=== PATIENT | male | born 1975 | race Caucasian/White ===

== ENCOUNTER 2020-03-12 22:01 | Emergency (ER) | payer OTHER ==
[~2020-03-12] VITALS: Ht 170.2 cm; Wt 97.5 kg
[2020-03-12 22:13] VITALS: BP 152/90
[2020-03-12 22:24] VITALS: BP_SYST 152
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
[2020-03-12 23:10] LABS: BASOPHIL # 0.1 10^3/uL (0.0-0.1); BASOPHIL % 0.4 % (0.0-0.2); EOSINOPHIL % 0.3 % (0.0-5.0); LYMPHOCYTES # 3.81 10^3/uL1 (1.0-4.8); LYMPHOCYTES % 29.8 % (24.0-44.0); MEAN CORP HGB 29.8 pg (26-34); MONOCYTES # 0.9 10^3/uL (0.3-0.8); MONOCYTES % 7.3 % (5.0-12.0); NEUTROPHIL # 7.9 10^3/uL (1.8-7.7); NEUTROPHILS % 61.7 % (41.0-85.0); PLATELET COUNT 298 10^3/uL (150-400); RED CELL DISTRIBUTION WIDTH 12.4 % (11.5-14.5)
[2020-03-12 23:19] LABS: CALCIUM 8.2 mg/dL (8.4-10.5); CARBON DIOXIDE 27.8 mmol/L (20.0-32)
--- NOTE | 2020-03-13 00:11 | DIREP ---
PROCEDURE:XRAY ANKLE MIN 3VWS-RT COMPARISON:None. INDICATIONS:pain FINDINGS: BONES:No acute fracture. JOINTS:The ankle mortise is congruent. SOFT TISSUES:Mild soft tissue swelling about the ankle. OTHER:No additional findings. CONCLUSION: 1. No acute osseous abnormality. 2. Mild soft tissue swelling about the ankle. Dictated by: Joe Lao M.D. On 03/13/2020 at 00:09 AM
--- NOTE | 2020-03-13 00:13 | DIREP ---
PROCEDURE:CT HEAD OR BRAIN W/O CONTRAST COMPARISON:None. INDICATIONS:pain TECHNIQUE:CT images were created without intravenous contrast. FINDINGS: VENTRICLES: Unremarkable ventricular size and morphology for the patient's age. CEREBRUM: No apparent mass or mass effect. No acute intracranial hemorrhage or abnormal extra-axial fluid collections. No CT evidence to suggest acute large vascular territorial ischemia. CEREBELLUM: Unremarkable for the patient's age. BRAINSTEM: Normal. SKULL: Normal. SINUSES: No significant paranasal sinus disease OTHER: Negative. CONCLUSION:No acute intracranial abnormality. Dictated by: Joe Lao M.D. on 03/13/2020 at 00:10 AM
== END 2020-03-13 00:32 | disposition home or self-care (01) ==
LOC: ER 22:01 → EDBD 22:01 → ER 03-13 00:32
DX: S09.90XA Unspecified injury of head, initial encounter (principal); M25.571 Pain in right ankle and joints of right foot; E11.9 Type 2 diabetes mellitus without complications; F15.10 Other stimulant abuse, uncomplicated; I10 Essential (primary) hypertension; Z79.899 Other long term (current) drug therapy; Y04.0XXA Assault by unarmed brawl or fight, initial encounter; Y93.89 Activity, other specified; Y92.89 Other specified places as the place of occurrence of the external cause; Y99.8 Other external cause status
CPT/HCPCS: 36415; 70450; 73610; 80053; 80307; 82140; 85025; 99285; G0480; 80320; 80324